=== PATIENT | male | born 1970 | race Caucasian/White ===

== ENCOUNTER 2024-11-28 09:02 | Emergency (ER) | payer BC ==
[2024-11-28] MEDS: HYDROmorphone 1 MG/ML 1 ML SYRINGE IVP STA (09:17)
--- NOTE | 2024-11-28 10:08 | XR ---
EXAMINATION TYPE: XR Hip Complete LT DATE OF EXAM: 11/28/2024 9:57 AM INDICATION: Patient age:Male; 54 years old; Reason for study: fall, pain; PHH. pain COMPARISON: None. TECHNIQUE: The left hip was examined in the frontal and lateral projections . FINDINGS: Acute comminuted moderately displaced intertrochanteric left femur fracture. Approximately 3.8 cm of shortening. No dislocation of the hip. There is some surrounding soft tissue swelling. No r adiopaque foreign body. IMPRESSION: Acute comminuted moderately displaced intertrochanteric left femur fracture. [facility], , 11/28/2024 10:06 AM
--- NOTE | 2024-11-28 10:17 | ED ---
Lower Extremity Injury HPI - General Chief Complaint: Extremity Injury, Lower Stated Complaint: L hip injury Time Seen by Provider: 11/28/24 09:08 Source: patient, EMS, RN notes reviewed Mode of arrival: EMS Limitations: physical limitation - History of Present Illness Initial Comments: 54-year-old male presents emergency department with chief complaint of left hip pain. Patient states he was pulling a vinyl decal of the vehicle when he slipped falling onto his left hip. He states he immediately had pain unable to unable to lay on his back secondary to his left leg pain. No head injury no loss conscious. Patient has a history of hypertension no blood thinners no other associated symptoms. - Related Data Home Medications Medication Instructions Recorded Confirmed Cholecalciferol [Vitamin D3 (125 125 mcg PO HS 11/28/24 11/28/24 Mcg = 5000 Iu)] Multivit,Calc,Min/FA/K1/Lycop 1 tab PO HS 11/28/24 11/28/24 [One-A-Day Men's Complete Tab] Nebivolol HCl [Bystolic] 10 mg PO HS 11/28/24 11/28/24 Allergies Allergy/AdvReac Type Severity Reaction Status Date / Time No Known Allergies Allergy Verified 11/28/24 09:09 Review of Systems ROS Statement: Those systems with pertinent positive or pertinent negative responses have been documented in the HPI. ROS Other: All systems not noted in ROS Statement are negative. Past Medical History Past Medical History: Hypertension History of Any Multi-Drug Resistant Organisms: None Reported Past Surgical History: Appendectomy Past Psychological History: No Psychological Hx Reported Smoking Status: Never smoker Past Alcohol Use History: Occasional Past Drug Use History: None Reported General Exam Limitations: no limitations General appearance: alert, in no apparent distress Head exam: Present: atraumatic, normocephalic, normal inspection Neck exam: Present: normal inspection, full ROM. Absent: tenderness, meningismus, lymphadenopathy Respiratory exam: Present: normal lung sounds bilaterally. Absent: respiratory distress, wheezes, rales, rhonchi, stridor Cardiovascular Exam: Present: regular rate, normal rhythm, normal heart sounds. Absent: systolic murmur, diastolic murmur, rubs, gallop, clicks Extremities exam: Present: other (Left hip diffuse tenderness, patient is in semiflexed position, neurovascular intact with diffuse tenderness of proximal femoral region) Neurological exam: Present: alert, oriented X3, CN II-XII intact, reflexes normal. Absent: motor sensory deficit Course Vital Signs 11/28/24 11/28/24 09:09 10:54 Temperature 98.4 F Pulse Rate 77 72 Respiratory 16 18 Rate Blood Pressure 142/70 120/71 O2 Sat by Pulse 95 95 Oximetry Medical Decision Making - Medical Decision Making Was pt. sent in by a medical professional or institution (, INGRID, SEBD TEACHER, urgent care, hospital, or correction...) When possible be specific @ -No Did you speak to anyone other than the patient for history (EMS, parent, family, police, friend...)? What history was obtained from this source @ -No Did you review nursing and triage notes (agree or disagree)? Why? @ -I reviewed and agree with nursing and triage notes Were old charts reviewed (outside hosp., previous admission, EMS record, old EKG, old radiological studies, urgent care reports/EKG's, correction records)? Report findings @ -No old charts were reviewed Differential Diagnosis (chest pain, altered mental status, abdominal pain women, abdominal pain men, vaginal bleeding, weakness, fever, dyspnea, syncope, headache, dizziness, GI bleed, back pain, seizure, CVA, palpatations, mental health, musculoskeletal)? @ -Fall, hip contusion, hip fracture EKG interpreted by me (3pts min.). @ -As above X-rays interpreted by me (1pt min.). @ -X-ray left hip showing displaced comminuted left IT fracture CT interpreted by me (1pt min.). @ -None done U/S interpreted by me (1pt. min.). @ -None done What testing was considered but not performed or refused? (CT, X-rays, U/S, labs)? Why? @ -None What meds were considered but not given or refused? Why? @ -None Did you discuss the management of the patient with other professionals (professionals i.e. INGRID Cruz, SEBD TEACHER, lab, RT, psych nurse, 7th grade social studies teacher, enrollment processor, teacher, earth science technical officer, case folder)? Give summary @ -I did discuss case with on-call orthopedics Dr. Coronado who recommends patient to be transferred to outside facility. Discussed the case with [facility] accepts transfer. Was smoking cessation discussed for >3mins.? @ -No Was critical care preformed (if so, how long)? @ -No Were there social determinants of health that impacted care today? How? (Homelessness, low income, unemployed, alcoholism, drug addiction, transportation, low edu. Level, literacy, decrease access to med. care, intermediate, rehab)? @ -No Was there de-escalation of care discussed even if they declined (Discuss DNR or withdrawal of care, Hospice)? DNR status @ -No What co-morbidities impacted this encounter? (DM, HTN, Smoking, COPD, CAD, Cancer, CVA, ARF, Chemo, Hep., AIDS, mental health diagnosis, sleep apnea, morbid obesity)? @ -None Was patient admitted / discharged? Hospital course, mention meds given and route, prescriptions, significant lab abnormalities, going to OR and other pertinent info. @ -Transferred to [facility] for orthopedic traumatologist evaluation. Undiagnosed new problem with uncertain prognosis? @ -No Drug Therapy requiring intensive monitoring for toxicity (Heparin, Nitro, In sulin, Cardizem)? @ -No Were any procedures done? @ -No Diagnosis/symptom? @ -Fall, left IT fracture Acute, or Chronic, or Acute on Chronic? @Acute Uncomplicated (without systemic symptoms) or Complicated (systemic symptoms)? @ -Complicated Side effects of treatment? @ -No Exacerbation, Progression, or Severe Exacerbation? @ -No Poses a threat to life or bodily function? How? (Chest pain, [place], [place], pneumonia, PE, COPD, DKA, ARF, appy, cholecystitis, CVA, Diverticulitis, Homicidal, Suicidal, threat to staff... and all critical care pts) @ -Yes surgical risk - Lab Data Result diagrams: 11/28/24 10:54 11/28/24 10:54 Lab Results 11/28/24 11/28/24 11/28/24 Range/Units 10:54 10:54 10:54 WBC 7.38 (4.50-10.00) 10*3/uL RBC 4.48 (4.40-5.60) 10*6/uL Hgb 14.1 (13.0-17.0) g/dL Hct 41.4 (39.6-50.0) % MCV 92.4 (80.0-97.0) fL MCH 31.5 (27.0-32.0) pg MCHC 34.1 (32.0-37.0) g/dL Plt Count 207 (140-440) 10*3/uL MPV 9.7 (9.5-12.2) fL Immature Gran % (Auto) 0.5 % Neutrophils % 68.7 % Lymphocytes % 20.9 % Monocytes % 8.4 % Eosinophils % 1.1 % Basophils % 0.4 % Immature Gran # 0.04 (0.00-0.04) 10*3/uL Neutrophils # 5.07 (1.80-7.70) 10*3/uL Lymphocytes # 1.54 (0.90-5.00) 10*3/uL Monocytes # 0.62 (0.20-1.00) 10*3/uL Eosinophils # 0.08 (0.04-0.35) 10*3/uL Basophils # 0.03 (0.00-0.10) 10*3/uL PT 10.4 (10.0-12.5) sec INR 0.9 (<1.2) APTT 22.0 (22.0-30.0) sec Sodium 141 (137-145) mmol/L Potassium 4.6 (3.5-5.1) mmol/L Chloride 107 (98-107) mmol/L Carbon Dioxide 23 (22-30) mmol/L Anion Gap 11 mmol/L BUN 17 (9-20) mg/dL Creatinine 0.71 (0.66-1.25) mg/dL Est GFR (CKD-EPI)AfAm >90 (>60 ml/min/1.73 sqM) Est GFR (CKD-EPI)NonAf >90 (>60 ml/min/1.73 sqM) Glucose 123 H (74-99) mg/dL Calcium 9.6 (8.4-10.2) mg/dL Total Bilirubin 0.5 (0.2-1.3) mg/dL AST 30 (17-59) U/L ALT 32 (4-49) U/L Alkaline Phosphatase 93 (38-126) U/L Total Protein 6.8 (6.3-8.2) g/dL Albumin 4.1 (3.5-5.0) g/dL Disposition Clinical Impression: Intertrochanteric fracture of left femur Disposition: OTHER INSTITUTION NOT DEFINED Condition: Fair Referrals: Alan Tomlinson MD [Primary Care Provider] - 1-2 days Time of Disposition: 11:53 - Out of Hospital Transfer - Req. Specs Out of Hospital Transfer - Requested Specifics: Other Emergency Center ([facility])
[2024-11-28 10:55] VITALS: RESP 18
[2024-11-28] MEDS: HYDROmorphone 0.5 MG/0.5 ML SYRINGE IVP STA ×2 (10:55→12:34)
[2024-11-28 11:10] LABS: Basophils # (A) 0.03 10*3/uL (0.00-0.10); Basophils % (A) 0.4 %; Eosinophils # (A) 0.08 10*3/uL (0.04-0.35); Eosinophils % (A) 1.1 %; HCT 41.4 % (39.6-50.0); HGB 14.1 g/dL (13.0-17.0); Lymphocytes # (A) 1.54 10*3/uL (0.90-5.00); Lymphocytes % (A) 20.9 %; MCH 31.5 pg (27.0-32.0); MCHC 34.1 g/dL (32.0-37.0); MCV 92.4 fL (80.0-97.0); Monocytes # (A) 0.62 10*3/uL (0.20-1.00); Monocytes % (A) 8.4 %; Neutrophils # (A) 5.07 10*3/uL (1.80-7.70); Neutrophils % (A) 68.7 %; Platelet Count 207 10*3/uL (140-440); RBC 4.48 10*6/uL (4.40-5.60); RDW 12.1 % (11.5-14.5); WBC 7.38 10*3/uL (4.50-10.00)
[2024-11-28 11:27] LABS: INR 0.9 (<1.2); Partial Thromboplastin Time 22.0 sec (22.0-30.0); Prothrombin Time 10.4 sec (10.0-12.5)
[2024-11-28 11:30] LABS: ALT 32 U/L (4-49); AST 30 U/L (17-59); African American GFR (CKD) >90 (>60 ml/min/1.73 sqM); Albumin 4.1 g/dL (3.5-5.0); Alkaline Phosphatase 93 U/L (38-126); Anion Gap 11 mmol/L; Blood Urea Nitrogen 17 mg/dL (9-20); Calcium 9.6 mg/dL (8.4-10.2); Carbon Dioxide 23 mmol/L (22-30); Chloride 107 mmol/L (98-107); Glucose 123 mg/dL (74-99); Non-African American GFR(CKD) >90 (>60 ml/min/1.73 sqM); Potassium 4.6 mmol/L (3.5-5.1); Sodium 141 mmol/L (137-145); Total Protein 6.8 g/dL (6.3-8.2)
[2024-11-28 12:49] VITALS: BP 108/69; PULSE 83; TEMP 97.9
== END 2024-11-28 12:49 | disposition other institution (70) ==
LOC: EC 09:02
DX: S72.142A Displaced intertrochanteric fracture of left femur, initial encounter for closed fracture (principal); X50.9XXA Other and unspecified overexertion or strenuous movements or postures, initial encounter
CPT/HCPCS: 36415; 93005; 80053; 85025; 85610; 85730; 73502; 99285; 96374; 96376; J1171 ×2